=== PATIENT | male | born 1975 | race Caucasian/White ===

== ENCOUNTER → 2019-02-23 16:22 | Outpatient (CLI) | payer BC, SELFPAY ==
[2019-02-23 19:20] LABS: Anion Gap 17.1 mEq/L (5-15); Blood Urea Nitrogen 25 mg/dL (7-18); Calcium 9.4 mg/dL (8.5-10.1); Carbon Dioxide 24 mmol/L (21.0-32.0); Chloride 103 mmol/L (98-107); Creatinine,Serum 1.34 mg/dL (0.70-1.30); Estimated Glomerular Filt Rate 58 ml/min (>60); GFR (African American) 70 ML/MIN (>60); Glucose 99 mg/dL (74-106); Potassium 4.1 mmoL/L (3.5-5.1); Sodium 140 mmol/L (136-145)
== END ==
PROVIDERS: Visit Provider Family Medicine
DX: E87.5 Hyperkalemia (principal)
CPT/HCPCS: 36415; 80048

== ENCOUNTER → 2019-03-01 07:56 | Outpatient (CLI) | payer BC, SELFPAY | PROVIDERS: PCP Family Medicine; Referring Provider Family Medicine; Visit Provider Family Medicine | DX: R07.9 Chest pain, unspecified (principal); R06.09 Other forms of dyspnea | CPT/HCPCS: 93017 ==

== ENCOUNTER 2020-11-01 17:11 | Emergency (ER) | payer BC, SELFPAY ==
[2020-11-01 17:21] VITALS: BP 154/93; PULSE 112; RESP 18; TEMP 37.8; O2SAT 94; BMI 34.9
--- NOTE | 2020-11-01 17:24 | HMH.EDGENADL ---
ED Disposition Clinical Impression: Viral illness Disposition: Home, Self-Care Condition on Discharge: Good Referrals: Noe Levin MD [Primary Care Provider] - 3 days - Critical Care Critical Care Time: No Attestation: On 11/01/20, the high probability of a clinically significant, sudden or life threatening deterioration of the following system(s) required my full and direct attention, intervention and personal management. The time I documented below is in addition to time spent performing reported procedures but includes the following listed in this critical care notation. Medical Decision Making - Jamaal Inquiry Pt receiving controlled substance: No Vital Signs: 11/01/20 17:21 Temperature 100.0 F H Temperature Source Oral Pulse Rate [Radial] 112 H Respiratory Rate 18 Blood Pressure [Right Arm] 154/93 H Blood Pressure Mean [Right Arm] 113 Blood Pressure Source [Right Arm] Automatic Cuff Blood Pressure Position [Right Arm] Sitting 02 Sat by Pulse Oximetry 94 L Oxygen Delivery Method Room Air Orders (Tests/Meds): ED MEDICATIONS Discontinued Medications Generic Name Dose Route Start Last Admin Trade Name Freq PRN Reason Stop Dose Admin Acetaminophen 650 mg 11/01/20 17:26 11/01/20 17:28 Acetaminophen 325mg Tab PO 11/01/20 17:27 650 mg ONCE ONE Administration ORDERS Category Date Time Status Covid-19 Nasal PCR ([facility]) Routine Lab 11/01/20 17:15 Stop Req Flu A&B Antigens, Rapid [Rapid Influenza A&B Antigens] Lab 11/01/20 17:15 Stop Req Stat Full Resp Panel w/COVID ([facility]) Routine Lab 11/01/20 17:33 Ordered Medical Decision Narrative: 45yo M evaluated for Covid symptoms. Patient is in no acute distress on initial presentation. O2 sats are 95% on room air. Exam is largely unremarkable. We will treat the patient's fever with Tylenol and Motrin at this time. Patient has these medications at home and encouraged him to take them as directed. Offered to call the patient with his results so he would have to sit in the emergency department for prolonged period of time, he agrees with that plan. Patient follow-up PCP on Wednesday. General Adult HPI - General Stated complaint: Fever, body aches, cough Time Seen by Provider: 11/01/20 17:24 Mode of Arrival: Ambulatory Source of Information: Patient Limitations: No Limitations - History of Present Illness HPI narrative: 45yo M without significant past medical history presents to the emergency department secondary to fever, cough, nausea, fatigue. Patient has had numerous positive exposures to Covid. Patient was tested on Wednesday but is not had a result back. He states he felt normal on Wednesday. Symptoms began late yesterday and have continued since that time. He denies vomiting or diarrhea but does note that he has decreased appetite. He denies shortness of breath. - Related Data Previous Rx's Medication Instructions Recorded Albuterol Sulfate [Albuterol HFA 1 - 2 puffs IH Q4-6H PRN #1 inh 11/27/19 Inhaler] Azithromycin [Z-José Luis 250mg Tab*] 250 mg PO UD DOSE PK #6 tab 11/27/19 Benzonatate [Tessalon Perle 100mg 100 mg PO TID PRN #15 cap 11/27/19 Cap*] predniSONE [Prednisone 5mg Tab 5 mg PO UD DOSE PK 6 Days #21 pack 11/27/19 Dose-Pack] Allergies Allergy/AdvReac Type Severity Reaction Status Date / Time HYDROCODONE Allergy Mild Uncoded 10/26/17 14:26 OXYCODONE AdvReac Severe MOOD Uncoded 10/26/17 14:26 CHANGES, MAKES MEAN [facility] History - Hepatitis A Screen Drug use history?: No Attestation statement:: This patient has been screened for Hepatitis A risk factors. - Social History Smoking Status: Never smoker Tobacco Type: smokeless tobacco # Packs/Day (cigarettes): 0 Alcohol Intake: current Occupational Status: other ROS Obtained: Yes All systems reviewed & no additional complaints Physical Exam - General General appearance: alert, in no apparent distress -
[2020-11-01 17:36] LABS: Adenovirus,PCR Not Detected (NotDetected); Bordetella Pertussis Not Detected (NotDetected); Chlamydophila Pneumoniae, PCR Not Detected (NotDetected); Coronavirus 229E Not Detected (NotDetected); Coronavirus NL63 Not Detected (NotDetected); Coronavirus OC43 Not Detected (NotDetected); Coronovirus HKU1,PCR Not Detected (NotDetected); Human Metapneumovirus Not Detected (NotDetected); Influenza A, PCR Not Detected (NotDetected); Influenza AH1, 2009 Not Detected (NotDetected); Influenza AH1, PCR Not Detected (NotDetected); Influenza AH3,PCR Not Detected (NotDetected); Influenza B, PCR Not Detected (NotDetected); Mycoplasma Pneumoniae, PCR Not Detected (NotDetected); Parainfluenza 1, PCR Not Detected (NotDetected); Parainfluenza 2, PCR Not Detected (NotDetected); Parainfluenza 3, PCR Not Detected (NotDetected); Parainfluenza 4, PCR Not Detected (NotDetected); Respiratory Syncytial Virus Not Detected (NotDetected); Rhinovirus/Enterovirus Not Detected (NotDetected)
[2020-11-01 18:11] VITALS: BP 154/93; PULSE 112; RESP 18; TEMP 37.8; O2SAT 94
[2020-11-01 20:43] LABS: Coronavirus 19, PCR Detected (NotDetected)
--- NOTE | 2020-11-02 09:14 | PC.NURSE ---
pt is aware of his positive covid test , he understands to quarantine and health dept will be contact with him
== END 2020-11-01 18:12 | disposition home or self-care (01) ==
PROVIDERS: Emergency Provider Family Medicine; PCP Family Medicine
DX: U07.1 COVID-19 (principal)
CPT/HCPCS: 87581; 87633; 87798; 99282

== ENCOUNTER 2020-11-02 21:40 | Emergency (ER) | payer BC, SELFPAY ==
[2020-11-02 22:11] VITALS: BP 112/62; PULSE 93; RESP 16; O2SAT 94
[2020-11-02 22:16] VITALS: BP 98/70; PULSE 76; RESP 18; TEMP 36.9; O2SAT 94; BMI 34.9
--- NOTE | 2020-11-02 22:28 | XR_ITS ---
PROCEDURE: XR CHEST 2V Referring Doctor: Deven Villatoro Patient Age:45Y CLINICAL HISTORY: Syncope covid positive nonsmoker COMPARISON: CR CXR CHEST(2 VIEWS-NOT PORTABLE) from 08/30/2014 CR XR CHEST 2V from 11/27/2019 FINDINGS: today's PA and lateral chest is compared to November 2019 CXR as well as a August 2014 CXR. Nothing definitely acute on today's exam. I would note the markings are mildly accentuated towards the left lung base but I believe a similar appearance was seen on previous studies but no definite consolidation or early infiltrate. Of some respiratory symptoms progress follow-up suggested. The heart is normal in size, the bong and mediastinal structures appears satisfactory. No pleural effusion but no pneumothorax. Chest wall in T-spine appears satisfactory, stable. IMPRESSION: Stable chest with nothing definitely acute. No acute cardiopulmonary disease evident Dictated by: Luis Louis MD 11/03/2020 16:19 Luis Louis MD in [place] 11/03/2020 16:19
--- NOTE | 2020-11-02 22:28 | ECG_ITS ---
APPROVED REPORT Exam: Resting ECG HR:76 bpm ECG Measurements Heart Rate 76 AXES DC 148 P 21 QRSd 92 QRS 22 QT 372 T 20 QTc 418 Conclusion Normal sinus rhythm Normal ECG Electronically signed by : Noe Pérez, 11/03/2020 07:43:23
[2020-11-02 22:29] VITALS: BP 101/73; PULSE 70; RESP 16; O2SAT 96
[2020-11-02 22:39] LABS: Basophils # 0.1 K/mm3 (0-0.2); Basophils % 1.6 % (0.1-2.0); Eosinophils # 0.1 K/mm3 (0.0-0.4); Eosinophils % 1.3 % (0.1-12.0); Hematocrit 47.3 % (42.0-52.0); Hemoglobin 15.5 g/dL (14.1-18.0); Lymphocytes # 1.6 K/mm3 (0.7-4.5); Lymphocytes % 32.7 % (10-50); Mean Corpuscular HGB Conc 32.7 g/dL (31.8-35.4); Mean Corpuscular Hemoglobin 28.9 pg (27.0-31.2); Mean Corpuscular Volume 88.2 fl (80-94); Mean Platelet Volume 7.9 fl (7.4-10.4); Monocytes # 0.7 K/mm3 (0.1-1.0); Monocytes % 14.1 % (1.7-9.3); Neutrophils # 2.4 K/mm3 (1.8-7.8); Neutrophils % 50.3 % (37.0-80.0); Platelet Count 234 K/mm3 (142-424); Red Blood Count 5.36 M/mm3 (4.60-6.20); Red Cell Distribution Width 13.9 % (11.5-17.5); White Blood Count 4.8 K/mm3 (4.8-10.8)
[2020-11-02 22:48] LABS: Alanine Aminotransferase 41 U/L (12-78); Albumin Level 4.3 g/dl (3.5-5.0); Albumin/Globulin Ratio 1.4 (1.1-1.8); Alkaline Phosphatase 83 U/L (38-126); Anion Gap 11.9 mEq/L (5-15); Aspartate Amino Transferase 39 U/L (17-59); Bilirubin,Total 0.3 mg/dl (0.2-1.3); Blood Urea Nitrogen 16 mg/dl (9-20); Calcium 8.7 mg/dl (8.4-10.2); Carbon Dioxide 26 mmol/L (22.0-30.0); Chloride 104 mmol/L (98-107); Creatinine Clearance Estimated 128 mL/min (50-200); Estimated Glomerular Filt Rate 59 ml/min (>60); GFR (African American) 72 ML/MIN (>60); Globulin 3.1 g/dL (1.3-3.2); Glucose 149 mg/dl (74-100); Potassium 3.9 mmoL/L (3.5-5.1); Sodium 138 mmol/L (136-145); Total Protein,Serum 7.4 g/dl (6.3-8.2)
[2020-11-02 22:51] LABS: Lactic Acid 1.5 mmol/L (0.7-2.1)
[2020-11-02 22:53] LABS: C-Reactive Protein 4.2 mg/L (0-4)
[2020-11-02 23:04] LABS: Troponin I < 0.01 ng/ml (0.00-0.034)
[2020-11-02 23:07] LABS: Erythrocyte Sedimentation Rate 17 mm/hr (0-15)
[2020-11-02 23:08] LABS: Procalcitonin 0.063 ng/mL (0.0-2.0)
[2020-11-02 23:11] VITALS: BP 113/82; PULSE 64; RESP 16; O2SAT 100
--- NOTE | 2020-11-02 23:15 | HMH.EDSYNC ---
ED Disposition Clinical Impression: Vasovagal syncope, COVID-19 virus detected Disposition: Home, Self-Care Condition on Discharge: Good Instructions: DI for Syncope in Adults (Fainting) Additional Instructions: fluids and continue fluids and covid-19 restrictions Referrals: Noe Levin MD [Primary Care Provider] - - Critical Care Critical Care Time: No Attestation: On 11/02/20, the high probability of a clinically significant, sudden or life threatening deterioration of the following system(s) required my full and direct attention, intervention and personal management. The time I documented below is in addition to time spent performing reported procedures but includes the following listed in this critical care notation. Medical Decision Making - Medical Records Medical records reviewed: Yes: I reviewed the patient's medical records. - Jamaal Inquiry Pt receiving controlled substance: No Vital Signs: 11/02/20 22:16 Temperature 98.4 F Temperature Source Oral Pulse Rate [Right] 76 Respiratory Rate 18 Blood Pressure [Right Arm] 98/70 L Blood Pressure Mean [Right Arm] 79 Blood Pressure Source [Right Arm] Automatic Cuff Blood Pressure Position [Right Arm] Supine 02 Sat by Pulse Oximetry 94 L Oxygen Delivery Method Room Air - Lab Data Lab results reviewed: Yes: I reviewed the patient's lab results. Lab Results 11/02/20 21:55: WBC 4.8, RBC 5.36, Hgb 15.5, Hct 47.3, MCV 88.2, MCH 28.9, MCHC 32.7, RDW 13.9, Plt Count 234, MPV 7.9, Neut % (Auto) 50.3, Lymph % (Auto) 32.7, Alfalfa % (Auto) 14.1 H, Eos % (Auto) 1.3, Baso % (Auto) 1.6, Neut # (Auto) 2.4, Lymph # (Auto) 1.6, Alfalfa # (Auto) 0.7, Eos # (Auto) 0.1, Baso # (Auto) 0.1, ESR 17 H 11/02/20 21:55: Sodium 138, Potassium 3.9, Chloride 104, Carbon Dioxide 26, Anion Gap 11.9, BUN 16, Creatinine 1.30 H, Estimated Creat Clear 128, Estimated GFR 59, Est GFR ( Amer) 72, Glucose 149 H, Calcium 8.7, Total Bilirubin 0.3, AST 39, ALT 41, Alkaline Phosphatase 83, Troponin I < 0.01, C-Reactive Protein 4.2 H, Total Protein 7.4, Albumin 4.3, Globulin 3.1, Albumin/Globulin Ratio 1.4, Procalcitonin 0.063 11/02/20 21:55: Lactate 1.5 Result diagrams: 11/02/20 21:55 11/02/20 21:55 Orders (Tests/Meds): ED MEDICATIONS Generic Name Dose Route Start Last Admin Trade Name Freq PRN Reason Stop Dose Admin Sodium Chloride 1,000 mls @ 999 mls/hr 11/02/20 22:30 11/02/20 22:00 Sod Chlor 0.9% 1000ml Bag IV 11/02/20 23:30 999 mls/hr .Q1H1M LANIE Administration Lactated Ringer's 1,000 mls @ 999 mls/hr 11/02/20 22:45 11/02/20 22:41 Lactated Ringer's 1000 Ml Bag IV 11/02/20 23:45 999 mls/hr .Q1H1M LANIE Administration Discontinued Medications Generic Name Dose Route Start Last Admin Trade Name Freq PRN Reason Stop Dose Admin Dexamethasone Sodium Phosphate 10 mg 11/02/20 22:28 11/02/20 22:32 Dexamethasone 4mg/Ml 1ml Vial IV 11/02/20 22:29 10 mg ONCE ONE Administration ORDERS Category Date Time Status XR chest 2V Stat Exams 11/02/20 22:28 Ordered Troponin I Q3H Lab 11/03/20 01:30 Ordered Troponin I Q3H Lab 11/03/20 04:30 Ordered Blood Culture Stat Micro 11/02/20 21:55 Received - Radiology Data #1 Image(s): Chest Image Reviewed: Yes I reviewed the patient's radiology image Preliminary Findings: Normal/NAD - ECG Data Tracing #1 Normal Sinus Rhythm: Yes Ischemic changes: non-specific ST-T wave changes - Reevaluation(s) Time: 23:22 Reevaluation #1: doing better - ARIANNA Score for Non-Stemi Age of Patient: 40-49 years old Heart Rate: 70-89 bpm Systolic Blood Pressure: 80-99 mmHg Serum Creatinine: 1.20-1.59 mg/dl CHF Kill[place] Class: I-No CHF Other Risk Factors: None Non-Stemi Risk Score: 97 Medical Decision Narrative: has covid-19 and prob vasovagal episode Syncope HPI - General Chief Complaint: Syncope Stated Complaint: tested positive for covid, blacked out tonight Time Seen by Provi
[2020-11-02 23:56] VITALS: BP 136/92; PULSE 66; RESP 16; TEMP 36.9; O2SAT 97
== END 2020-11-02 23:58 | disposition home or self-care (01) ==
PROVIDERS: Emergency Provider Emergency Medicine; PCP Family Medicine
DX: R55 Syncope and collapse (principal); U07.1 COVID-19; Z88.5 Allergy status to narcotic agent
CPT/HCPCS: 71046; 80053; 83605; 84145; 84484; 85025; 85651; 86140; 87040; 93005; 96365; 96366; 96375; 99284

== ENCOUNTER → 2021-11-18 16:22 | Outpatient (CLI) | payer BC, SELFPAY | PROVIDERS: Visit Provider Nurse Practitioner | DX: U07.1 COVID-19 (principal) | CPT/HCPCS: C9803; U0003; U0005 ==

== ENCOUNTER → 2021-11-24 15:35 | Outpatient (CLI) | payer BC, SELFPAY | PROVIDERS: Visit Provider Nurse Practitioner | DX: U07.1 COVID-19 (principal) | CPT/HCPCS: C9803; U0003; U0005 ==

== ENCOUNTER 2022-10-21 14:42 | Emergency (ER) | payer BC, SELFPAY ==
[2022-10-21 16:28] VITALS: BP 145/89; PULSE 105; RESP 19; TEMP 37.1; O2SAT 99; BMI 35.6
[2022-10-21 16:37] LABS: UTC Strep Screen (Rapid) Negative (Negative)
--- NOTE | 2022-10-21 16:37 | EXP.UTC ---
Discharge Plan Disposition Patient Disposition: Home, Self-Care Condition: Good Prescriptions Prescriptions: New benzonatate [benzonatate] 100 mg capsule 100 mg PO TIDP PRN (Reason: Cough) Qty: 30 0RF methylprednisolone 4 mg Tablets,Dose Pack 4 mg PO DIRECTED Qty: 21 0RF amoxicillin-pot clavulanate 875-125 mg Tablet 1 tab PO Q12H Qty: 20 0RF Referrals Follow up/Referrals: Noe Levin MD [Primary Care Provider] - See instructions Activity Restrictions/Add. Instructions Additional Instructions/Restrictions: Drink plenty of fluids. Take tylenol or ibuprofen for pain or fever. Take the medications as directed. Follow up with your regular doctor. GO TO THE ER FOR ANY WORSENING SYMPTOMS Clinical Impressions Clinical Impression: Bronchitis, Sinusitis, Acute viral syndrome Stand Alone Forms Stand Alone Forms: Work/School Release Instructions Patient Instructions: DI for Sinusitis, DI for Acute Bronchitis Discharge ED Provider: [facility] General Stated complaint: Headache, drainage Mode of Arrival: Ambulatory Source of Information: Patient Limitations: No Limitations Time Seen by Provider: 10/21/22 16:37 Description of Symptoms (Recalled from Triage Doc. by RN): pt comes in with c/o drainage, fever, headache, sore throat. symptoms began wednesday HEENT Symptoms (Recalled from RN notes): Yes Resp Symptoms (Recalled from RN notes): Yes Skin Symptoms (Recalled from RN notes): No MS Symptoms (Recalled from RN notes): No Functional Status (Recalled from RN notes): n/a History of Present Illness Provider Complaint: He is here today with c/o drainage, fever, headache, sore throat. symptoms began Wednesday Related Data Previous Rx's Medication Instructions Recorded amoxicillin 875 mg-potassium 1 tab PO Q12H #20 tabs 10/21/22 clavulanate 125 mg tablet benzonatate 100 mg capsule 100 mg PO TIDP PRN Cough #30 caps 10/21/22 methylprednisolone 4 mg tablets in 4 mg PO DIRECTED #21 tabs 10/21/22 a dose pack Allergies Allergy/AdvReac Type Severity Reaction Status Date / Time HYDROCODONE Allergy Mild Uncoded 10/26/17 14:26 OXYCODONE AdvReac Severe MOOD Uncoded 10/26/17 14:26 CHANGES, MAKES MEAN Worker's Comp Is this a Worker's Comp case?: No [facility] Disclaimer: The information contained in this section may have been updated after the patient was seen, as this information can be updated by other users. Social History Smoking Status: Never smoker alcohol intake: current current occupational status: employed Travel in the last 8 weeks: None housing: house ROS Obtained: Yes All systems reviewed & no additional complaints except as documented Constitutional Constitutional: Reports chills and Reports fever(s) Eyes Eyes: Denies eye discharge ENT Ears, Nose, Mouth, and Throat: Reports as per HPI Cardiovascular Cardiovascular: Denies chest pain Respiratory Respiratory: Denies chest congestion and Reports cough Gastrointestinal Gastrointestingal: Reports nausea; Denies abdominal pain, constipation, cramping, diarrhea or vomiting Musculoskeletal Musculoskeletal: Denies arthralgias Integumentary/Breasts Skin/Breast: Denies rash Neurologic Neurologic: Denies paresthesias Physical Exam General General appearance: alert and in no apparent distress Head Head exam: atraumatic, normocephalic and normal inspection Eye Eye exam: Present normal appearance, PERRL and EOMI ENT ENT exam: Present normal exam, normal oropharynx, mucous membranes moist, TM's normal bilaterally and normal external ear exam Neck Neck exam: Present normal inspection, full ROM and trachea midline; Absent meningismus or lymphadenopathy Chest Chest inspection: Present normal inspection and symmetric chest wall rise; Absent tenderness Respiratory Respiratory exam: Present normal lung sounds bilaterally; A
[2022-10-21 17:07] VITALS: BP 145/89; PULSE 105; RESP 19; TEMP 37.1
== END 2022-10-21 17:10 | disposition home or self-care (01) ==
PROVIDERS: Emergency Provider Nurse Practitioner Family; PCP Family Medicine
DX: J40 Bronchitis, not specified as acute or chronic (principal); J32.9 Chronic sinusitis, unspecified; B34.9 Viral infection, unspecified
CPT/HCPCS: 87275; 87276; 87880; 99212; G0463

== ENCOUNTER 2023-05-04 22:01 | Emergency (ER) | payer BC, SELFPAY ==
[2023-05-04 22:03] VITALS: BP 129/90; PULSE 103; RESP 20; TEMP 36.6; O2SAT 100; BMI 35.6
[2023-05-04 22:10] VITALS: BMI 35.6
--- NOTE | 2023-05-04 22:10 | XR_ITS ---
PROCEDURE INFORMATION: Exam: XR Right Hand Exam date and time: 05/04/2023 10:09 PM Age: 47 years old Clinical indication: Pain; Finger(s) and hand; Patient HX: Right luluy caught in dogs collar; Additional info: Accident TECHNIQUE: Imaging protocol: Radiologic exam of the right hand. Views: 3 or more views. COMPARISON: No relevant prior studies available. FINDINGS: Bones/joints: Obliquely oriented nondisplaced fracture of the 5th proximal phalanx. No intra-articular extension. No additional fracture or dislocation Soft tissues: Normal. IMPRESSION: Obliquely oriented nondisplaced fracture of the 5th proximal phalanx.
--- NOTE | 2023-05-04 22:17 | HMH.EDUPEXT ---
Discharge Plan Disposition Patient Disposition: Home, Self-Care Prescriptions Prescriptions: No Action No Known Home Medications Referrals Follow up/Referrals: Gaurav Lee DO [Staff Physician] - See instructions Provider,Referral, [Primary Care Provider] - See instructions Clinical Impressions Clinical Impression: Finger fracture, right Instructions Patient Instructions: DI for Finger Fracture Discharge ED Provider: Irving (ED)Deven Upper Extremity HPI General Chief Complaint: Extremity Injury, Upper Stated Complaint: [id number] right pinky finger Time Seen by Provider: 05/04/23 22:17 Mode of Arrival: Ambulatory Source of Information: Patient, Relative and Medical Record Limitations: No Limitations Description of Symptoms (Recalled from ER Triage Doc. by RN): Pt was holding Fr[employer] Fry collar when his right pinky got caught in the collar when dog leaped History of Present Illness HPI narrative: acute injury rt hand as noted above complaint: injury to: right and hand Onset (ago): hour(s) Other Extremity Injury: Right: hand Other injuries: none Handedness: right Place: home Severity: moderate Context: injury Related Data Home Medications Medication Instructions Recorded Confirmed No Known Home Medications 05/04/23 05/04/23 Allergies Allergy/AdvReac Type Severity Reaction Status Date / Time HYDROCODONE Allergy Mild Uncoded 10/26/17 14:26 OXYCODONE AdvReac Severe MOOD Uncoded 10/26/17 14:26 CHANGES, MAKES MEAN PFSH PFSH Disclaimer: The information contained in this section may have been updated after the patient was seen, as this information can be updated by other users. Social History Smoking Status: Never smoker alcohol intake: current current occupational status: employed Travel in the last 8 weeks: None housing: house ROS Obtained: Yes All systems reviewed & no additional complaints except as documented Physical Exam General General appearance: alert Head Head exam: normocephalic Eye Eye exam: Present PERRL and EOMI ENT ENT exam: Present mucous membranes moist Neck Neck exam: Present trachea midline Respiratory Respiratory exam: Absent respiratory distress Cardiovascular Cardiovascular exam: Present regular rate Expanded Upper Extremity Exam Right: Hand exam: Present tenderness and swelling; Absent full ROM Neuromotor exam: Normal wrist extension Vascular exam: Normal radial pulse Neurological Exam Neurological exam: Present alert, oriented X3 and CN II-XII intact; Absent motor sensory deficit Psychiatric Psychiatric exam: Present normal affect Skin Skin exam: Absent rash Medical Decision Making Medical Records Medical records reviewed: Yes I reviewed the patient's medical records. Jamaal Inquiry Pt receiving controlled substance: No Vital Signs: 05/04/23 22:03 05/04/23 23:36 Temperature 98 F 98.1 F Temperature Source Oral Oral Pulse Rate 91 H Pulse Rate [Right] 103 H Respiratory Rate 20 20 Blood Pressure 124/87 Blood Pressure [Right Arm] 129/90 Blood Pressure Mean [Right Arm] 103 Blood Pressure Source [Right Arm] Automatic Cuff Blood Pressure Position [Right Arm] Sitting 02 Sat by Pulse Oximetry 100 Oxygen Delivery Method Room Air Lab Data Lab results reviewed: Yes I reviewed the patient's lab results. Orders (Tests/Meds): ORDERS Category Date Time Status XR hand RT min 3V Stat Exams 05/04/23 22:10 Completed Radiology Data #1: Image(s): Hand Image Reviewed: Yes I have reviewed radiologist's interpretation Preliminary Findings: Abnormal fx hand Medical Decision Narrative: acute injury rt hand with fx and will splint and send to ortho Procedures Orthopedic Splinting/Casting Injury #1: Side: right Upper Extremity Injury Location: hand Upper E
[2023-05-04 23:36] VITALS: BP 124/87; PULSE 91; RESP 20; TEMP 36.7; O2SAT 97
== END 2023-05-04 23:45 | disposition home or self-care (01) ==
PROVIDERS: Emergency Provider Emergency Medicine
DX: S62.646A Nondisplaced fracture of proximal phalanx of right little finger, initial encounter for closed fracture (principal); W23.1XXA Caught, crushed, jammed, or pinched between stationary objects, initial encounter
CPT/HCPCS: 29125; 73130; 99283

== ENCOUNTER → 2023-05-21 10:47 | Outpatient (CLI) | payer BC, SELFPAY ==
--- NOTE | 2023-05-21 10:50 | XR_ITS ---
FINAL REPORT CLINICAL HISTORY: FOLLOW UP OF FINGER FX, RIGHT PINKY, PT STATES THIS IS THIRD TIME FRACTURING PINKMaxx COMPARISON: 05/04/2023 FINDINGS: RIGHT FINGER (FIFTH) SERIES Three views of the right finger (fifth) were obtained. There is a comminuted nondisplaced fracture of the proximal aspect of the fifth proximal phalanx. There is no significant callus formation present. The joint spaces are preserved. There is soft tissue swelling of the fifth digit. IMPRESSION: Comminuted nondisplaced fracture of the proximal aspect of the fifth proximal phalanx. Reviewed, Interpreted and Dictated by Dion Stearns III, MD Transcribed by Justine Echevarria Authenticated and [facility]
== END ==
LOC: RAD 10:48
PROVIDERS: Visit Provider Orthopaedic Surgery
DX: S62.606A Fracture of unspecified phalanx of right little finger, initial encounter for closed fracture (principal)
CPT/HCPCS: 73140

== ENCOUNTER 2024-12-08 15:41 | Emergency (ER) | payer BC, SELFPAY ==
--- NOTE | 2024-12-08 17:24 | EXP.UTC ---
Discharge Plan Disposition Patient Disposition: Home, Self-Care Condition: Good Prescriptions Prescriptions: New benzonatate 100 mg capsule 100 mg PO TIDP PRN (Reason: Cough) Qty: 30 0RF oseltamivir [Tamiflu] 75 mg capsule 75 mg PO BID 5 Days Qty: 10 0RF ondansetron 4 mg Tablet,Disintegrating 4 mg PO Q8H PRN (Reason: Nausea) Qty: 12 0RF No Action celecoxib 200 mg capsule 200 mg PO DAILY atorvastatin 40 mg tablet 40 mg PO DAILY metformin 500 mg tablet 500 mg PO DAILY Referrals Follow up/Referrals: Noe Pérez MD [Primary Care Provider] - See instructions Activity Restrictions/Add. Instructions Additional Instructions/Restrictions: Drink plenty of fluids. Take tylenol or ibuprofen for pain or fever. Take the medications as directed. Follow up with your regular doctor. GO TO THE ER FOR ANY WORSENING SYMPTOMS Clinical Impressions Clinical Impression: Influenza A Instructions Patient Instructions: Influenza, DI for Influenza -- Adult, Ondansetron, Benzonatate, Oseltamivir Print Language Print Language: Syrian Discharge ED Provider: Kit Louise [facility] General Stated complaint: fever,Joint pain,nausea,cough Time Seen by Provider: 12/08/24 17:24 Related Data Home Medications ?Medication ?Instructions ?Recorded ?Confirmed atorvastatin 40 mg tablet 40 mg PO DAILY 12/08/24 12/08/24 celecoxib 200 mg capsule 200 mg PO DAILY 12/08/24 12/08/24 metformin 500 mg tablet 500 mg PO DAILY 12/08/24 12/08/24 Previous Rx's ?Medication ?Instructions ?Recorded benzonatate 100 mg capsule 100 mg PO TIDP PRN Cough #30 caps 12/08/24 ondansetron 4 mg disintegrating 4 mg PO Q8H PRN Nausea #12 tabs 12/08/24 tablet oseltamivir 75 mg capsule (Tamiflu) 75 mg PO BID 5 days #10 caps 12/08/24 Allergies Allergy/AdvReac Type Severity Reaction Status Date / Time hydrocodone Allergy Unknown Verified 12/08/24 17:38 allergy reaction oxycodone Allergy Unknown Verified 12/08/24 17:38 allergy reaction [facility] Disclaimer: The information contained in this section may have been updated after the patient was seen, as this information can be updated by other users. Social History Smoking Status: Never smoker alcohol intake: current alcohol intake frequency: a few times a week current occupational status: employed Travel in the last 8 weeks: None housing: house Have you lived/traveled outside [place] in past 30 days?: No Contact w/someone who lives/traveled outside [place] past 30 days?: No Exposure to someone with infectious disease in past 14 days?: No Do you have a fever (greater than 100.4 F or 38 C)?: Yes Have you tested positive for COVID-19: No Exposed to someone with COVID-19 in past 14 days?: No Do you have a sore throat?: Yes Do you have a cough?: Yes Do you have any weakness?: No Do you have any diarrhea?: No Are you experiencing any unusual bleeding?: No Do you have any muscle aches/pain?: No Do you have any abdominal pain?: No Are you experiencing loss of taste or smell?: No ROS Obtained: Yes All systems reviewed & no additional complaints except as documented Constitutional Constitutional: Reports chills and Reports fever(s) Eyes Eyes: Denies eye discharge ENT Ears, Nose, Mouth, and Throat: Reports as per HPI Cardiovascular Cardiovascular: Denies chest pain Respiratory Respiratory: Denies chest congestion and Reports cough Gastrointestinal Gastrointestingal: Reports nausea; Denies abdominal pain, constipation, cramping, diarrhea or vomiting Musculoskeletal Musculoskeletal: Denies arthralgias Integumentary/Breasts Skin/Breast: Denies rash Neurologic Neurologic: Denies paresthesias Physical Exam General General appearance: alert and in no apparent distress Eye Eye exam: Present normal appearance, PERRL and EOMI ENT ENT exam: Present mucous membranes moist and normal external ear exam Expanded ENT Exam External ear exam: Present normal external inspection TM/Canal exam: Bilateral TM: erythema and bulging Nose exam: Absent sinus tenderness Nasal speculum exam: Bilateral: normal Mouth exam: Present normal external inspection; Absent drooling Teeth exam: Present normal inspection Throat exam: Present tonsillar erythema and tonsillomegaly Neck Neck exam: Present normal inspection, full ROM and trachea midline; Absent tenderness, lymphadenopathy or thyromegaly Chest Chest inspection: Present normal inspection and symmetric chest wall rise; Absent tenderness or rash Respiratory Respiratory exam: Present normal lung sounds bilaterally; Absent respiratory distress, wheezes, stridor or accessory muscle use Cardiovascular Cardiovascular exam: Present regular rate, normal rhythm and normal heart sounds Abdominal Exam Abdominal exam: Present soft; Absent distention, tenderness, guarding, rebound or rigidity Extremities Exam Extremities exam: Present normal inspection, full ROM and normal capillary refill; Absent tenderness or calf tenderness Back Exam Back exam: Present normal inspection and full ROM; Absent tenderness Neurological Exam Neurological exam: Present alert and oriented X3 Psychiatric Psychiatric exam: Present normal affect and normal mood Skin Skin exam: Present warm, dry, intact and normal color Lymphatic Lymphatic Findings: no adenopathy Medical Decision Making Medical Records Medical records reviewed: No I reviewed the patient's medical records. Screening: Per USPSTF and CDC recommendations, given the prevalence of disease in our region, it is our hospital?s policy to screen for HIV and viral Hepatitis for all patients aged 18 and over and those with ongoing risk factors. Jamaal Inquiry Pt receiving controlled substance: No Lab Data Lab results reviewed: Yes I reviewed the patient's lab results.
[2024-12-08 17:30] VITALS: BP 140/92; PULSE 120; RESP 19; TEMP 39.1; O2SAT 98; BMI 38.6
[2024-12-08 17:31] VITALS: BMI 38.6
[2024-12-08] MEDS: IBUPROFEN 400 MG TABLET 800 MG PO (17:34)
[2024-12-08] MEDS: ACETAMINOPHEN 325MG TAB 650 MG PO (17:34)
[2024-12-08 17:36] LABS: UTC Influenza A Antigen Positive (Negative); UTC Influenza B Antigen Negative (Negative)
[2024-12-08 17:45] VITALS: BP 140/92; PULSE 120; RESP 19; TEMP 39.1; O2SAT 98
== END 2024-12-08 17:49 | disposition home or self-care (01) ==
PROVIDERS: Emergency Provider Nurse Practitioner Family; PCP Internal Medicine Adolescent Medicine
DX: J10.1 Influenza due to other identified influenza virus with other respiratory manifestations (principal)
CPT/HCPCS: 87804; 99213; G0381